=== PATIENT | female | born 1975 | race African-American/Black ===

== ENCOUNTER 2024-12-26 19:20 | Emergency (ER) | payer SELFPAY ==
[~2024-12-26] VITALS: Ht 170.2 cm; Wt 110.7 kg
[2024-12-26 19:54] VITALS: PULSE 97; RESP 18; TEMP 97.9
[2024-12-26 20:27] VITALS: BP 174/105; PULSE 97; RESP 18; TEMP 97.9; O2SAT 98
== END 2024-12-26 20:27 | disposition home or self-care (01) ==
LOC: FSED 20:10
DX: M65.88 Other synovitis and tenosynovitis, other site (principal); X50.1XXA Overexertion from prolonged static or awkward postures, initial encounter; Y92.89 Other specified places as the place of occurrence of the external cause; I10 Essential (primary) hypertension; F17.210 Nicotine dependence, cigarettes, uncomplicated
CPT/HCPCS: 99282